=== PATIENT | male | born 1945 | race Caucasian/White ===

== ENCOUNTER → 2016-09-07 | Outpatient (CLI) | payer MEDICARE ==
[2016-05-24 14:51] VITALS: BP 134/68
[~2016-09-07] MED LIST: ASPI-482 PO; ASPI1CPM PO; CETI10TA22 PO; CRESTOR5 MG PO; OLME20TA PO; OMEP20TA PO; TAMS0.4C97 PO
--- NOTE | 2016-09-07 11:06 | KCIC ---
Exam: Abdomen ultrasound Indication:Reason For Study Reason: / Spl. Instructions: / History: Technique: Multiple realtime grayscale sonographic images were obtained over the abdomen. Static images were submitted for interpretation. Findings: The pancreas is poorly visualized due to overlying bowel gas. The IVC is patent. The aorta is normal in caliber. There is calcified atherosclerotic disease abdominal aorta. The liver is normal in size measuring 16.5 cm. There is a solid slightly hypoechoic vascular lesion in the right lobe that measures 2.6 centimeters in size. The gallbladder is nondistended. There is no evidence for cholelithiasis. There is no wall thickening, or pericholecystic fluid. Common bile duct is not well visualized. The Right kidney is normal in size measuring 11.4 x 4.9 x 4.0 cm. There is no evidence for mass, nephrolithiasis, or hydronephrosis. The Left kidney is normal in size measuring 9.7 x 4.3 x 4.9 cm. There is no evidence for mass, nephrolithiasis, or hydronephrosis. The spleen is normal in size measuring 10.9 cm. No ascites is identified. Impression: There is a 2.6 centimeter hypoechoic vascular mass in the right lobe of the liver. This is suspect for metastatic disease. Electronically signed by: Junaid Bland (Sep 07, 2016 11:04:26)
== END | disposition home or self-care (01) ==
LOC: KCIC US 08:33
PROVIDERS: ATTEND Urology
DX: I70.0 Atherosclerosis of aorta (principal); R16.0 Hepatomegaly, not elsewhere classified
CPT/HCPCS: 76700

== ENCOUNTER → 2016-09-11 | Outpatient (CLI) | payer MEDICARE ==
[2016-05-24 14:51] VITALS: BP 134/68
== END | disposition home or self-care (01) ==
LOC: LAB 11:21
PROVIDERS: ATTEND Urology
DX: N20.0 Calculus of kidney (principal)
CPT/HCPCS: 36415; 84550

== ENCOUNTER 2016-09-23 09:46 | Outpatient (CLI) | payer MEDICARE ==
[~2016-09-23] VITALS: Ht 172.7 cm; Wt 78.5 kg
[2016-09-23] VITALS (11 sets, daily range): BP systolic 88–108; BP diastolic 45–60
[2016-09-23] MEDS ORDERED: ALLO100T PO (10:04)
[2016-09-23] MEDS ORDERED: AZAC100V IJ (10:04)
[2016-09-23 10:22] LABS: BASO % 1 % (0-3); EOS % 0 % (0-3); HEMATOCRIT 29.8 % (39.0-53.0); HEMOGLOBIN 9.9 g/dL (13.0-17.5); LYMPH # 0.8 x10^3/uL (1.0-4.8); LYMPH % 18 % (24-48); MEAN CORPUSCULAR HEMOGLOBIN 30 pg (25-35); MEAN CORPUSCULAR HGB CONC 33 g/dL (31-37); MEAN CORPUSCULAR VOLUME 89 fL (79-100); MONO % 0 % (0-9); NEUT % 81 % (31-73); PLATELET COUNT 128 x10^3/uL (140-400); RED BLOOD COUNT 3.34 x10^6/uL (4.30-5.70); WHITE BLOOD COUNT 4.4 x10^3/uL (4.0-11.0)
[2016-09-23 10:32] LABS: INR 1.1 (0.8-1.1); PROTHROMBIN TIME PATIENT 13.9 SEC (11.7-14.0)
[2016-09-23] MEDS ORDERED: LIDOCAINE 1% / SOD BICARB 8.4% 20 ML VIAL. IJ ONE (12:00)
[2016-09-23] MEDS ORDERED: FENTANYL PF 100 MCG/2 ML VIAL. ONE (12:11)
[2016-09-23] MEDS ORDERED: MIDAZOLAM HCL 2 MG/2 ML VIAL. ONE (12:11)
[2016-09-23] MEDS ORDERED: GELATIN SPONGE SIZE 12-7MM SPONGE. ONE (12:16)
[2016-09-23] MEDS ORDERED: MIDAZOLAM HCL 2 MG/2 ML VIAL. IV ONE (12:45)
[2016-09-23] MEDS ORDERED: FENTANYL PF 100 MCG/2 ML VIAL. IV ONE (12:45)
--- NOTE | 2016-09-23 12:46 | PDOC ---
BRIEF OPERATIVE NOTE Pre-Op Diagnosis Liver mass Post-Op Diagnosis same Procedure Performed CT Liver biopsy Surgeon Alvin Anesthesia Type: Conscious Sedation Specimens Obtained 3 x 18g cores Complications Miniscule pneumothorax CRISTINA LILLY MD Sep 23, 2016 12:45
--- NOTE | 2016-09-23 12:46 | PDOC1 ---
History and Physical Date of Procedure Date of Admission History of Present Illness Reason for Visit Adult with liver mass Past Medical History Past Medical History see nursing pre-op assessment Current Medications Current Medications Current Medications Lidocaine/Sodium Bicarbonate (Buffered Lidocaine 1%) 20 ml 1X ONCE IJ ; Start 09/23/16 at 12:00; Stop 09/23/16 at 12:01; Status DC Fentanyl Citrate (Fentanyl 2ml Vial) 100 mcg STK-MED ONCE .ROUTE ; Start at 12:11; Stop 09/23/16 at 12:12; Status DC Midazolam HCl (Versed) 2 mg STK-MED ONCE .ROUTE ; Start 09/23/16 at 12:11; Stop 09/23/16 at 12:12; Status DC Gelatin (Gelfoam Size 12-7mm) 1 each STK-MED ONCE .ROUTE ; Start 09/23/16 at 12: 16; Stop 09/23/16 at 12:17; Status DC Midazolam HCl (Versed) 1 mg 1X ONCE IV ; Start 09/23/16 at 12:45; Stop 09/23/16 at 12:46; Status UNV Fentanyl Citrate (Fentanyl 2ml Vial) 50 mcg 1X ONCE IV ; Start 09/23/16 at 12:45 ; Stop 09/23/16 at 12:46; Status UNV Active Scripts Active Aspir 81 (Aspirin) 81 Mg Tablet.dr 1 Tab PO DAILY Flomax (Tamsulosin Hcl) 0.4 Mg Cap.er.24h 0.4 Mg PO QHS Reported Vidaza (Azacitidine) 100 Mg Vial 100 Mg IJ DAILY Allopurinol 100 Mg Tablet 100 Mg PO DAILY Zyrtec (Cetirizine Hcl) 10 Mg Tablet 1 Tab PO DAILY Gave this morning Take in Am Omeprazole 20 Mg Tablet.dr 20 Mg PO DAILY Gave Protonix this morning Take in Am Benicar (Olmesartan Medoxomil) 20 Mg Tablet 20 Mg PO DAILY Gave losartan instead this morning Take in Am Allergies Allergies: Coded Allergies: No Known Drug Allergies (Unverified , 05/22/16) Physical Exam Vital Signs Vital Signs Date Time Temp Pulse Resp B/P Pulse Ox O2 Delivery O2 Flow Rate FiO2 09/23/16 12:42 67 14 96 Nasal Cannula 2.0 09/23/16 10:56 98.2 95/55 98.2 Other see nursing pre-op assessment Assessment Assessment Liver mass Problems: Plan Plan CT Biopsy of liver CRISTINA LILLY MD Sep 23, 2016 12:46
--- NOTE | 2016-09-23 12:47 | PDOC ---
MODERATE SEDATION ASSESSMENT RISKS/ALTERNATIVES Risks/Alternatives Risks and alternatives of this type of sedation and procedure discussed with: RISK/ALTERNATIVES: Patient H & P ON CHART H & P H & P on chart and reviewed for co-morbid conditions and appropriate labs. H&P ON CHART: Yes STATUS PREG STATUS ASSESSED: Yes MEDS/ALLERGIES REVIEWED Meds/Allergies Reviewed Medications and Allergies including time and route of recently administered narcotics and sedatives. MEDS/ALLERGIES REVIEWED: Yes ASA RATING ASA RATING: II AIRWAY ASSESSMENT Airway Assessment Airway patency, oral function limitations, presence of caps, crowns, dentures, partials, and ability to extend neck assessed. AIRWAY ASSESSMENT: Yes MALLAMPATI SCORE MALLAMPATI SCORE: II PRE-SEDATION ASSESSMENT PRE-SEDATION ASSESSMENT: Yes CRISTINA LILLY MD Sep 23, 2016 12:47
--- NOTE | 2016-09-23 14:55 | RAD ---
Procedure: CT-guided liver biopsy Clinical Indication: 70-year-old with liver mass Sedation: Conscious sedation was administered for 11 minutes. The patient was monitored by a qualified independent observer throughout the time of sedation. Please refer to the medical record for exact doses of medications utilized to achieve moderate sedation. Antibiotics: None Contrast: None Sterility: The procedure was performed in its entirety using appropriate elements of sterile technique. Consent: The procedure was explained in its entirety to the patient or the patients designated human resources hr representative by a member of the treatment team, including a discussion of the risks, benefits and commonly accepted alternatives to the procedure, as well as the expected consequences of no therapy whatsoever. Discussion of the risks included, but was not limited to, those that are most frequent and those that are rare but possibly severe or life-threatening, as well as the possibility of unforeseen complications. Technique and Findings: Following informed consent, the patient was prepped and draped in the usual sterile fashion. Preliminary CT scan of the area of interest was performed. 1% lidocaine was used to achieve local anesthesia. A small dermatotomy was made. Under periodic CT surveillance, a 17-gauge needle guide was advanced towards the lesion in question and 3 x 18-gauge core biopsy specimens were obtained and preserved in formalin. Gelfoam pledgets were applied as the needle guide was removed and hemostasis was achieved with manual compression. Complications: No immediate Impression: 1. CT-guided liver mass biopsy as described PQRS Compliance Statement: One or more of the following individualized dose reduction techniques were utilized for this examination: 1. Automated exposure control 2. Adjustment of the mA and/or kV according to patient size 3. Use of iterative reconstruction technique
--- NOTE | 2016-09-23 14:57 | RAD ---
Portable chest x-ray compared to similar examination dated 05/20/2016 for status post right lung biopsy. Findings: The lungs are clear. There is no pneumothorax, pleural effusion, congestive heart failure, or focal infiltrate. Cardiomediastinum is grossly unremarkable. No significant osseous abnormalities. Impression: 1. Normal chest x-ray.
--- NOTE | 2016-09-25 15:41 | PATHOLOGY ---
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 SEE COMMENT. COMMENT: Sections of the liver mass needle biopsy reveal segments of liver tissue showing foci of replacement by a malignant epithelial neoplasm. The malignant cells are present in irregular solid nests within an inflamed reactive desmoplastic stroma. The malignant cells have a polygonal shape with well-demarcated cell borders. The malignant cells have modest amounts of eosinophilic cytoplasm, and possess enlarged, rounded to ovoid nuclei containing prominent nucleoli. There are mitotic figures present. There are foci of coagulative tumor necrosis. The tumor shows no evidence of gland formation. A limited panel of immunoperoxidase stains is obtained and yields the following results: Cytokeratin 7: tumor cells negative Cytokeratin 20: tumor cells negative Cytokeratin 5/6: tumor cells positive P40: tumor cells positive TTF-1: tumor cells largely negative CDX-2: tumor cells negative The morphologic and immunophenotypic findings are supportive of the diagnosis of moderately to poorly differentiated squamous cell carcinoma. Primary squamous cell carcinoma of the liver has been reported but is rare. The neoplasm is more likely metastatic, and may arise from a variety of sources, including lung, gastrointestinal tract, and pancreaticobiliary tract. Correlate clinically. The case is also examined by Dr. La Fallon, who concurs with the diagnosis. (JPM:csd:mgr; d/t: 09/25/2016) REPORT ELECTRONICALLY SIGNED BY: Ronald Myers M.D. DATE/TIME: 09/25/2016 15:40 * * * * * * * * GROSS PATHOLOGY: The specimen is received in formalin, labeled "Jay Lea and liver bx." Received is a 1.0 x 0.3 x 0.2 cm aggregate of blood-tinged, white-sahu, rubbery, and irregular soft tissue fragments. The specimen is submitted entirely in cassette A1. (TTL; 09/23/2016) INITIAL CPT CODE(S): A; 13358, 58443, 98510, 09384, 85364, 44696, 21184 Professional services performed by [facility] at [facility] [address] [place] [id number] Technical services performed by [facility] at [address] [place] [address], [address], [place] [address]. SPECIMEN(S) RECEIVED: A.Liver mass biopsy CLINICAL HISTORY: Liver mass, history of leukemia PATIENT: JAY LEA /AGE: 411/24/1945 (Age: 70) PATIENT #: [id number] ALT CASE #: SPECIMEN COLLECTION DATE: 09/23/2016 SPECIMEN RECEIVED DATE: 09/23/2016 [facility] - [address] [place] [address] - PHONE: [phone] * * * END OF REPORT * * *
== END 2016-09-23 15:24 | disposition home or self-care (01) ==
LOC: INTRAD 09:46
PROVIDERS: ATTEND Internal Medicine Hematology & Oncology
DX: R16.0 Hepatomegaly, not elsewhere classified (principal); G45.9 Transient cerebral ischemic attack, unspecified; I63.9 Cerebral infarction, unspecified; E78.00 Pure hypercholesterolemia, unspecified; I10 Essential (primary) hypertension; K21.9 Gastro-esophageal reflux disease without esophagitis; M19.90 Unspecified osteoarthritis, unspecified site; F17.200 Nicotine dependence, unspecified, uncomplicated
CPT/HCPCS: 36415; 47000; 71010; 77012; 85027; 85610; J2250; J3010

== ENCOUNTER 2016-10-13 06:34 | Day surgery (SDC) | payer MEDICARE ==
[~2016-10-13] VITALS: Ht 172.7 cm; Wt 78.5 kg
[~2016-10-13 06:34] MED LIST changes: +ALLO100T PO; +AZAC100V IJ
[2016-10-13] MEDS ORDERED: PROCHLORPERAZINE 10 MG/2 ML VIAL. IV PRN (07:00)
[2016-10-13] MEDS ORDERED: IV RINGERS,LACTATED 1000ML 1,000 ML IV SCH (07:00)
[2016-10-13] MEDS ORDERED: FENTANYL PF 100 MCG/2 ML VIAL. IV PRN ×2 (07:00)
[2016-10-13] MEDS ORDERED: HYDROMORPHONE 2 MG/ML VIAL. IV PRN (07:00)
[2016-10-13] MEDS ORDERED: LIDOCAINE 1% 1 ML SYRINGE. ID PRN (07:00)
[2016-10-13] MEDS ORDERED: MORPHINE SULFATE 2 MG/ML DISP.SYRIN. IV PRN (07:00)
[2016-10-13] MEDS ORDERED: ONDANSETRON PF 4 MG/2 ML VIAL. IV PRN (07:00)
[2016-10-13 07:38] LABS: CALCIUM 8.8 mg/dL (8.5-10.1); POTASSIUM 4.6 mmol/L (3.5-5.1)
[2016-10-13 07:39] LABS: BASO % 1 % (0-3); EOS % 0 % (0-3); HEMATOCRIT 29.7 % (39.0-53.0); HEMOGLOBIN 9.7 g/dL (13.0-17.5); LYMPH # 0.5 x10^3/uL (1.0-4.8); LYMPH % 13 % (24-48); MEAN CORPUSCULAR HEMOGLOBIN 30 pg (25-35); MEAN CORPUSCULAR HGB CONC 33 g/dL (31-37); MEAN CORPUSCULAR VOLUME 91 fL (79-100); MONO % 0 % (0-9); NEUT % 86 % (31-73); PLATELET COUNT 116 x10^3/uL (140-400); RED BLOOD COUNT 3.28 x10^6/uL (4.30-5.70); RED CELL DISTRIBUTION WIDTH 16.9 % (11.5-14.5); WHITE BLOOD COUNT 3.6 x10^3/uL (4.0-11.0)
[2016-10-13] MEDS ORDERED: PROPOFOL 20 ML IV ONE (07:48)
[2016-10-13] MEDS ORDERED: ONDANSETRON PF 4 MG/2 ML VIAL. ONE (07:49)
[2016-10-13] MEDS ORDERED: LIDOCAINE 2% 100 MG/5 ML DISP.SYRIN. ONE (07:49)
[2016-10-13] MEDS ORDERED: DEXAMETHASONE SOD PHOS 20 MG/5 ML VIAL. ONE (07:49)
[2016-10-13] MEDS ORDERED: FENTANYL PF 100 MCG/2 ML VIAL. ONE (07:50)
[2016-10-13 08:13] LABS: BILIRUBIN,URINE NEGATIVE (NEG); GLUCOSE,URINE NEGATIVE (NEG); NITRITE,URINE NEGATIVE (NEG); PROTEIN,URINE 30 mg/dL (NEG-TRACE)
[2016-10-13 08:20] LABS: BACTERIA,URINE 0 /HPF (0-FEW); RBC,URINE 0 /HPF (0-2); SQUAMOUS EPITHELIAL CELL,UR FEW /LPF; WBC,URINE 0 /HPF (0-4)
[2016-10-13] MEDS ORDERED: EPHEDRINE PF IN SALINE 50 MG/5 ML DISP.SYRIN. IV ONE (08:21)
[2016-10-13] MEDS ORDERED: PHENYLEPHRINE in 0.9% NACL PF 1 MG/10 ML DISP.SYRIN. IV ONE (08:38)
[2016-10-13] MEDS ORDERED: IOHEXOL 300 MG/ML 50 ML VIAL. ONE (08:38)
[2016-10-13] MEDS ORDERED: SEVOFLURANE 31 TO 60 MINUTES. IH ONE (08:51)
--- NOTE | 2016-10-13 09:08 | DISCH ---
DISCHARGE INSTRUCTIONS Condition on Discharge Condition on Discharge: Stable Activity After Discharge Activity Instructions for Disc: Resume previous activity Driving Instructions after Dis: Do not drive today Diet after Discharge Diet after Discharge: Regular Contacting the DRSierra after DC Call your doctor for: Concerns you may have Follow-Up Follow up with: 6 weeks GINA Renee DO Oct 13, 2016 09:08
--- NOTE | 2016-10-13 09:13 | PDOC ---
BRIEF OPERATIVE NOTE Date: Oct 13, 2016 Pre-Op Diagnosis right ureteral calculi (uric acid) Post-Op Diagnosis same Procedure Performed Cystoscopy removal right ureteral stent, right retrograde pyelogram, removal of bladder stones Surgeon Belen Anesthesia Type: General Specimens Obtained stones sent for stone analysis Findings right ureter free of stones multiple bladder stones Complications none Additional Remarks continue Allopurinol needs urine alkalinazation GINA ASHFORD DO Oct 13, 2016 09:13
[2016-10-13] MEDS ORDERED: CIPR500T PO (09:30)
--- NOTE | 2016-10-13 09:37 | OP ---
DATE OF SURGERY: 10/13/2016 PREOPERATIVE DIAGNOSIS: Uric acid, kidney stones, right ureteral calculus. POSTOPERATIVE DIAGNOSIS: Uric acid, kidney stones, right ureteral calculus. PROCEDURE: Cystoscopy, removal of right ureteral stent, right retrograde pyelogram, removal of foreign body from bladder. SURGEON: Gina Ashford DO. ANESTHESIA: General. INDICATIONS AND JUDGMENT: This is a 70-year-old male with a history of multiple uric acid kidney stones. He underwent cystoscopy and stent placement months ago for a distal uric acid stones. We were unable to continue treatment due to his treatment for leukemia. It was felt at this point that his blood count had improved and we could safely remove the right ureteral stent. A recent KUB revealed the stent was in good position and no evidence of hydronephrosis or ureteral calculi. The patient was currently on allopurinol for his a history of multiple uric acid kidney stones. DESCRIPTION OF PROCEDURE: The patient was preloaded with IV antibiotics. He was taken to the operating room and placed on the operating room table in a supine position, given a general anesthetic and then placed in a dorsolithotomy position using Brent stirrups since we do not have a cystoscopy table. A C-arm was moved into position. Stent was identified in satisfactory position with fluoroscopy. Rigid cystoscopy was performed. The urethra was normal course and caliber. The patient has a small prostate 15-20 grams, not completely obstructing. He had some uric acid kidney stones adherent to the stent in the bladder. Some of these were removed and sent for stone analysis and some other stones were in the bladder were removed and sent for stone analysis ____ appeared to be uric acid. The distal portion of the right ureteral stent was grasped with grasping forceps and removed without difficulty. I then did a right retrograde pyelogram. I did not see any filling defects in the ureter. There may be a uric acid stone in the renal pelvis might have been air bubble. The contrast drained without difficulty. I then ran 0.035 Glidewire up the right ureter. I did not meet any resistance and the wire was then removed. It was felt that the right ureter was open and not obstructed by the calculi. I then performed a cystoscopy and removed a few more stone fragments from the bladder and these were sent for stone analysis as well. The instruments were removed. The patient tolerated the procedure well and was sent to recovery room in satisfactory condition. Plans will be to send the patient home on 3 days with Cipro antibiotics, he will continue his allopurinol. I will check with the oncologist, Dr. Langley. I would like to place him on medication to ____ his urine to further prevent more kidney stones. The patient was sent to recovery room in satisfactory condition. GINA ASHFORD DO DR: AMA/franci JOB#: [id number] / [id number] DELLA John MD
[2016-10-13 09:47] VITALS: BP 105/54
[2016-10-13 10:19] LABS: PLT ESTIMATE ADEQUATE (ADEQUATE)
[2016-10-16 11:27] LABS: COLOR Orange (.); URIC ACID 100 % (.)
== END 2016-10-13 10:12 | disposition home or self-care (01) ==
LOC: SURG 06:34
PROVIDERS: ATTEND Urology
DX: N20.2 Calculus of kidney with calculus of ureter (principal); E78.00 Pure hypercholesterolemia, unspecified; I10 Essential (primary) hypertension; K21.9 Gastro-esophageal reflux disease without esophagitis; M19.90 Unspecified osteoarthritis, unspecified site; Z87.39 Personal history of other diseases of the musculoskeletal system and connective tissue; Z87.891 Personal history of nicotine dependence; Z86.73 Personal history of transient ischemic attack (TIA), and cerebral infarction without residual deficits
CPT/HCPCS: 36415; 52310; 74420; 80048; 81001; 82365; 85007; 85027; C1769; J1100; J1956; J2370; J2405; J2704; J3010; Q9967

== ENCOUNTER → 2016-12-31 | Outpatient (CLI) | payer MEDICARE ==
[~2016-12-31] MED LIST changes: +CIPR500T PO
--- NOTE | 2016-12-31 13:26 | RAD ---
FDG tumor localization scan, PET/CT, 12/31/2016: History: Lung cancer, leukemia Following IV injection of 14.0 mCi of 18 F-FDG, imaging was performed from the skull base to the proximal thighs. The noncontrast CT component was performed for attenuation correction and anatomic localization purposes rather than for primary diagnosis. The patient's blood glucose level at the time of injection was 112 MG/DL. Comparison is made to a study from 09/17/2016. The previously seen hypermetabolic focus in the right azygous region has resolved. The CT component demonstrates persistent pulmonary nodules. The hypermetabolic nodule seen in the left upper lobe on the previous studies is of similar size, although it is no longer hypermetabolic. There appear to be several new small nodular opacities in both lungs. These nodules do not demonstrate increased FDG uptake, however, that may be due to their small sizes. A small mildly hypermetabolic focus is seen in the subcarinal region on the right. It demonstrate a maximum SUV of 3.9. The previously seen hypermetabolic focus in the liver is no longer visible. FDG uptake in the liver is unremarkable. Normal GI tract and urinary tract activity is evident in the abdomen and pelvis. No new hypermetabolic abdominal or pelvic process is seen. There is increased FDG uptake in the bone marrow, most prominent throughout the spine and in the proximal long bones. The degree of increased FDG uptake appears to have increased slightly since the previous study. A moderate-sized area of encephalomalacia is again noted in the left cerebral hemisphere. Coronary artery calcifications are present. The right ureteral stent has been removed. Sigmoid diverticula are again noted. There is moderate nonspecific prostatic enlargement. IMPRESSION: 1. The hypermetabolic foci in the azygos region and the right lobe of the liver have resolved, suggesting a favorable response to therapy. 2. Previously seen hypermetabolic pulmonary nodules no longer demonstrate increased FDG uptake, although those nodules persist. There are several new pulmonary nodules bilaterally. 3. New, tiny, mildly hypermetabolic focus in the right subcarinal region. 4. Generalized increased FDG uptake in the bone marrow has worsened slightly, again compatible with a rebound response to chemotherapy versus tumor infiltration this patient with a history of leukemia.
== END | disposition home or self-care (01) ==
LOC: PETSC 09:43
PROVIDERS: ATTEND Internal Medicine Hematology & Oncology
DX: C93.10 Chronic myelomonocytic leukemia not having achieved remission (principal); C34.90 Malignant neoplasm of unspecified part of unspecified bronchus or lung; I25.10 Atherosclerotic heart disease of native coronary artery without angina pectoris; N40.0 Benign prostatic hyperplasia without lower urinary tract symptoms; K57.30 Diverticulosis of large intestine without perforation or abscess without bleeding; G93.89 Other specified disorders of brain
CPT/HCPCS: 78815; A9552

== ENCOUNTER → 2017-03-12 | Outpatient (CLI) | payer MEDICARE ==
[~2017-03-12] MED LIST changes: -OLME20TA PO; +OLME20TA19 PO; -OMEP20TA PO; +OMEP20TA8 PO
--- NOTE | 2017-03-12 14:20 | KCIC ---
PA and lateral chest radiograph 03/12/2017 CLINICAL HISTORY: Lung cancer. Two PA and a lateral digital radiographs of the chest were obtained. Comparison study is dated 09/23/2016. The cardiac silhouette is normal in size. The thoracic aorta is tortuous. Atherosclerotic calcification of the thoracic aorta is seen. No acute pulmonary infiltrate is seen. No pleural effusion or pneumothorax is noted. The osseous structures are unchanged. IMPRESSION: No acute pulmonary infiltrate is seen. Electronically signed by: Twan Fulton MD (03/12/2017 2:17 PM) [facility]-KCIC1
== END | disposition home or self-care (01) ==
LOC: KCIC 12:20
PROVIDERS: ATTEND Nurse Practitioner Adult Health
DX: C34.90 Malignant neoplasm of unspecified part of unspecified bronchus or lung (principal)
CPT/HCPCS: 71020

== ENCOUNTER → 2017-04-15 | Outpatient (CLI) | payer MEDICARE ==
--- NOTE | 2017-04-15 12:38 | RAD ---
Exam performed: Nuclear medicine PET scan. History: [Lung cancer, hemotherapy one week ago, history of stroke. Years ago]. Date of service: 04/15/17. Comparison: Nuclear medicine PET scan from 12/31/16. Technique: Patient was injected 12.74 .5 mCi of F-18 FDG intravenously and delayed whole-body images are obtained from the skull base to the mid thighs. Corresponding noncontrast enhanced images are obtained for the purposes of attenuation correction and anatomical correlation. Patient's fasting blood glucose level at the time of injection measures 123.0 mg/dL. Findings: Previously seen hypermetabolic nodule in the subcarinal region is no longer visualized.. There is development of several new pulmonary nodules for example nodule anteriorly in the left upper lobe measuring 1.2 cm demonstrates low-grade metabolic activity of up to 1.8. A pleural-based soft tissue density 1.3 cm nodule in the posterior basal left lower lobe demonstrates no hypermetabolic activity with SUV values of up to 2.7. There is also development of additional 1.6 cm nodule in the posterior basal right lower lobe without hypermetabolic activity. SUV value in this nodule measures up to 2.4. Additional streaky opacities are also seen in the lower lobes bilaterally. Previously seen subcentimeter nodularities in both upper lobes remain stable. Diffuse increased FDG uptake in the bone marrow appears less prominent since previous study. No abnormal hypermetabolic activity seen in the neck chest, abdomen or pelvis. The corresponding CT images demonstrate a chronic left parietal infarct. No abnormalities or masses seen in the. There are no neck, mediastinal or hilar adenopathy. Mild atheromatous calcification of the aorta and coronary arteries. Unopacified abdominal viscera appear grossly normal. Prostatomegaly. Atheromatous aortic calcification. No abdominal masses seen degenerative changes about the thoracolumbar spine. Impression: 1.Previously seen diffuse areas of generalized FDG uptake in the bone marrow appears improved. 2. Development of few new pulmonary nodules without abnormal hypermetabolic activity with ongoing tiny subcentimeter pulmonary nodules. Development of streaky linear bibasal opacities probably atelectasis. PQRS Compliance Statement: One or more of the following individualized dose reduction techniques were utilized for this examination: 1. Automated exposure control 2. Adjustment of the mA and/or kV according to patient size 3. Use of iterative reconstruction technique
== END | disposition home or self-care (01) ==
LOC: PETSC 07:41
PROVIDERS: ATTEND Internal Medicine Hematology & Oncology
DX: C34.92 Malignant neoplasm of unspecified part of left bronchus or lung (principal); R53.83 Other fatigue; Z86.73 Personal history of transient ischemic attack (TIA), and cerebral infarction without residual deficits
CPT/HCPCS: 78815; A9552

== ENCOUNTER → 2017-07-01 | Outpatient (CLI) | payer MEDICARE ==
[2017-06-28 15:03] VITALS: BP 130/71
[~2017-07-01] MED LIST changes: +ACYC200C PO; +FLUC200T4 PO; +LEVO500T8 PO
--- NOTE | 2017-07-01 17:26 | RAD ---
EXAM: PET/CT SKULL BASE TO MID THIGH 07/01/2017. HISTORY: Restaging hepatocellular carcinoma. Recent chemotherapy treatment. COMPARISON: PET CT 04/15/2017, 12/31/2016. TECHNIQUE: CT was performed from the skull base through the mid thighs for the purposes of attenuation correction. 11.6 mCi F-18 fluorodeoxyglucose (FDG) was administered intravenously. After an uptake period, positron emission tomography was performed from the skull base through the mid thighs. The PET and CT data were fused and interpreted in combination a dedicated workstation. Blood glucose level was 122 mg/dL at the time of FDG administration. Findings: Head and neck: There is a large left frontoparietotemporal encephalomalacia with associated therapeutic defect. No discrete hypermetabolic mass or lymphadenopathy in this region. Chest: There is a punctate focus of increased FDG uptake with maximum SUV of 3.2 in the lower right paratracheal region with no discrete mass on the CT. Interval improvement in the PET and bilateral lower lobe patchy groundglass and nodular opacities with development of nodular opacities in the medial left upper lobe with mild associated FDG uptake. There is a stable 0.5 cm noncalcified nodule in the left upper lobe series 3/oh image 154 with no associated FDG uptake. Abdomen and pelvis: There is physiologic uptake in both kidneys with excretion into the renal collecting system. No suspicious hypermetabolic mass or lymphadenopathy in this region. Musculoskeletal: There is diffuse uptake throughout the visualized axial and appendicular skeleton. Uncorrected PET images: No additional significant finding on the uncorrected PET images. Low-dose CT: Coronary artery calcifications. Stable moderate splenomegaly. There are bilateral nonobstructive renal calculi. Infrarenal abdominal aortic ectasia with heavy aortoiliac calcified atheromatous disease. There is moderate enlargement of the prostate measuring 5.6 cm TV. Moderate colonic diverticulosis. Impression: 1. Improvement and development of mildly FDG avid patchy groundglass and nodular opacities throughout both lungs, which may represent pneumonitis or multifocal infection with atypical etiologies not excluded. 2. Involvement of diffuse osseous axial and appendicular FDG uptake as well as increased FDG activity in a mildly enlarged spleen which may be due to G-CSF therapy or leukemic involvement. 3. Development of lower right paratracheal punctate FDG uptake with no associated soft tissue nodule, may be artifactual, though previously it was a site of hypermetabolic lymphadenopathy. Attention on follow-up imaging is recommended. 4. Old left cerebral infarct.
== END | disposition home or self-care (01) ==
LOC: PETSC 11:05
PROVIDERS: ATTEND Internal Medicine Hematology & Oncology
DX: C93.10 Chronic myelomonocytic leukemia not having achieved remission (principal); C22.0 Liver cell carcinoma; R16.1 Splenomegaly, not elsewhere classified; Z86.73 Personal history of transient ischemic attack (TIA), and cerebral infarction without residual deficits
CPT/HCPCS: 78815; A9552

== ENCOUNTER → 2017-12-24 | Outpatient (CLI) | payer MEDICARE ==
[~2017-12-24] MED LIST changes: +ACETAMINOPHEN 325 MG TABLET. PO; -ACYC200C PO; -ALLO100T PO; -ASPI-482 PO; -ASPI1CPM PO; -AZAC100V IJ; -CETI10TA22 PO; -CIPR500T PO; -CRESTOR5 MG PO; -FLUC200T4 PO; -LEVO500T8 PO; -OLME20TA19 PO; -OMEP20TA8 PO; -TAMS0.4C97 PO; +diphenhydrAMINE HCL 25 MG CAPSULE PO
[2017-12-24 12:11] LABS: HEMATOCRIT 24.3 % (39.0-53.0); HEMOGLOBIN 8.5 g/dL (13.0-17.5); MEAN CORPUSCULAR HGB CONC 35 g/dL (31-37)
== END | disposition home or self-care (01) ==
LOC: OPS 11:24
DX: C92.00 Acute myeloblastic leukemia, not having achieved remission (principal)
CPT/HCPCS: 36415; 85014; 85018

== ENCOUNTER 2018-02-13 12:30 | Inpatient (IN) | payer MEDICARE ==
[2018-02-13] MEDS: IV NORMAL SALINE 1000ML BAG 1,000 ML IV (12:55)
[2018-02-13 13:06] LABS: ANION GAP 8 (6-14); BLOOD UREA NITROGEN 38 mg/dL (8-26); BUN/CREATININE RATIO 18 (6-20); CALCIUM 9.1 mg/dL (8.5-10.1); CARBON DIOXIDE 28 mmol/L (21-32); CHLORIDE 103 mmol/L (98-107); CREATININE 2.1 mg/dL (0.7-1.3); GLUCOSE 98 mg/dL (70-99); POTASSIUM 4.4 mmol/L (3.5-5.1); SODIUM 139 mmol/L (136-145)
[2018-02-13 13:12] LABS: ALBUMIN 2.8 g/dL (3.4-5.0); ALBUMIN/GLOBULIN RATIO 0.7 (1.0-1.7); ALK PHOS 113 U/L (46-116); ALT (SGPT) 16 U/L (16-63); AST (SGOT) 14 U/L (15-37); MAGNESIUM 1.7 mg/dL (1.8-2.4); TOTAL BILIRUBIN 0.5 mg/dL (0.2-1.0); TOTAL PROTEIN 6.6 g/dL (6.4-8.2)
[2018-02-13 13:15] LABS: BASO % 0 % (0-3); EOS % 0 % (0-3); HEMOGLOBIN 7.3 g/dL (13.0-17.5); LYMPH # 0.3 x10^3/uL (1.0-4.8); LYMPH % 51 % (24-48); MEAN CORPUSCULAR HEMOGLOBIN 30 pg (25-35); MEAN CORPUSCULAR HGB CONC 36 g/dL (31-37); MEAN CORPUSCULAR VOLUME 84 fL (79-100); MONO % 0 % (0-9); NEUT # 0.3 x10^3uL (1.8-7.7); NEUT % 48 % (31-73); RED BLOOD COUNT 2.41 x10^6/uL (4.30-5.70); RED CELL DISTRIBUTION WIDTH 15.5 % (11.5-14.5)
[2018-02-13 13:15] LABS: TROPONINI 0.065 ng/mL (0.000-0.055)
[2018-02-13 13:16] LABS: THYROID STIM HORMONE (TSH) 1.476 uIU/mL (0.358-3.74)
[2018-02-13 13:18] LABS: HEMATOCRIT 20.3 % (39.0-53.0); WHITE BLOOD COUNT 0.7 x10^3/uL (4.0-11.0)
[2018-02-13 13:19] LABS: NT-PRO BNP 483 pg/mL (0-124)
[2018-02-13 13:19] LABS: ADD MAN DIFF? YES; CKMB MASS 0.6 ng/mL (0.0-3.6); CREATINE KINASE 48 U/L (39-308); PLATELET COUNT 16 x10^3/uL (140-400)
[2018-02-13 14:28] LABS: % BANDS 6 % (0-9); % BASOS 1 % (0-3); % EOS 1 % (0-5); % LYMPHS 57 % (24-48); % MONOS 2 % (0-10); % SEGS 33 % (35-66)
[2018-02-13 14:41] LABS: PLT ESTIMATE DECREASED (ADEQUATE)
[2018-02-13 15:22] LABS: BILIRUBIN,URINE NEGATIVE (NEG); CLARITY,URINE CLEAR; COLOR,URINE YELLOW; GLUCOSE,URINE NEGATIVE (NEG); NITRITE,URINE NEGATIVE (NEG); PROTEIN,URINE 30 mg/dL (NEG-TRACE); UROBILINOGEN,URINE 0.2 mg/dL (0.2 mg/dL)
[2018-02-13 15:25] LABS: BACTERIA,URINE FEW /HPF (0-FEW); SQUAMOUS EPITHELIAL CELL,UR FEW /LPF; WBC,URINE OCC /HPF (0-4)
[2018-02-13] MEDS ORDERED: ONDANSETRON PF 4 MG/2 ML VIAL. IV (16:45)
[2018-02-13 17:53] LABS: TROPONINI 0.058 ng/mL (0.000-0.055)
[2018-02-13] MEDS: ATORVASTATIN CALCIUM 20 MG TABLET PO (20:45)
[2018-02-13] MEDS: IV DEXTROSE 5% - 0.9 % NACL 1,000 ML IV (20:46)
[2018-02-13] MEDS: ACYCLOVIR 200 MG CAPSULE. PO (20:47)
[2018-02-13] MEDS: MORPHINE SULFATE 4 MG/ML DISP.SYRIN. IV (20:55)
[2018-02-13 21:44] LABS: TROPONINI 0.056 ng/mL (0.000-0.055)
[2018-02-14 04:54] LABS: ADD MAN DIFF? NO
[2018-02-14 05:23] LABS: BASO % 1 % (0-3); EOS % 1 % (0-3); LYMPH # 0.3 x10^3/uL (1.0-4.8); LYMPH % 64 % (24-48); MEAN CORPUSCULAR HEMOGLOBIN 30 pg (25-35); MEAN CORPUSCULAR HGB CONC 36 g/dL (31-37); MEAN CORPUSCULAR VOLUME 84 fL (79-100); MONO % 1 % (0-9); NEUT # 0.2 x10^3uL (1.8-7.7); NEUT % 34 % (31-73); RED BLOOD COUNT 2.11 x10^6/uL (4.30-5.70); RED CELL DISTRIBUTION WIDTH 15.4 % (11.5-14.5)
[2018-02-14 05:46] LABS: HEMATOCRIT 17.7 % (39.0-53.0); HEMOGLOBIN 6.3 g/dL (13.0-17.5); PLATELET COUNT 12 x10^3/uL (140-400); WHITE BLOOD COUNT 0.5 x10^3/uL (4.0-11.0)
[2018-02-14 05:56] LABS: ALBUMIN 2.3 g/dL (3.4-5.0); ALBUMIN/GLOBULIN RATIO 0.6 (1.0-1.7); ALK PHOS 94 U/L (46-116); ALT (SGPT) 14 U/L (16-63); ANION GAP 8 (6-14); AST (SGOT) 12 U/L (15-37); BLOOD UREA NITROGEN 32 mg/dL (8-26); BUN/CREATININE RATIO 17 (6-20); CALCIUM 9.1 mg/dL (8.5-10.1); CARBON DIOXIDE 25 mmol/L (21-32); CHLORIDE 105 mmol/L (98-107); CREATININE 1.9 mg/dL (0.7-1.3); GFR 34.8; GLUCOSE 111 mg/dL (70-99); POTASSIUM 3.6 mmol/L (3.5-5.1); SODIUM 138 mmol/L (136-145); TOTAL BILIRUBIN 0.3 mg/dL (0.2-1.0); TOTAL PROTEIN 6.1 g/dL (6.4-8.2)
[2018-02-14 06:09] LABS: TROPONINI 0.054 ng/mL (0.000-0.055)
[2018-02-14] MEDS: IV DEXTROSE 5% - 0.9 % NACL 1,000 ML IV ×2 (06:59→20:44)
[2018-02-14] MEDS: ALLOPURINOL 100 MG TABLET. PO (08:27)
[2018-02-14] MEDS: FLUCONAZOLE 100 MG TABLET. PO (08:27)
[2018-02-14] MEDS: ACYCLOVIR 200 MG CAPSULE. PO ×2 (08:27→20:39)
[2018-02-14] MEDS: PANTOPRAZOLE 40 MG TABLET.DR. PO (08:27)
[2018-02-14] MEDS: LOSARTAN POTASSIUM 50 MG TABLET. PO (08:28)
[2018-02-14 16:09] LABS: IMMEDIATE SPIN CROSSMATCH 1 3
[2018-02-14] MEDS: ATORVASTATIN CALCIUM 20 MG TABLET PO (20:39)
[2018-02-14] MEDS: TBO-FILGRASTIM 480 MCG/0.8 ML SYRINGE. SQ (20:41)
[2018-02-15] MEDS: IV DEXTROSE 5% - 0.9 % NACL 1,000 ML IV ×3 (05:32→23:19)
[2018-02-15] MEDS: PANTOPRAZOLE 40 MG TABLET.DR. PO (08:07)
[2018-02-15] MEDS: ACYCLOVIR 200 MG CAPSULE. PO ×2 (08:07→20:58)
[2018-02-15] MEDS: FLUCONAZOLE 100 MG TABLET. PO (08:07)
[2018-02-15] MEDS: ALLOPURINOL 100 MG TABLET. PO (08:07)
[2018-02-15] MEDS: LOSARTAN POTASSIUM 50 MG TABLET. PO (08:08)
[2018-02-15 10:15] LABS: ADD MAN DIFF? NO
[2018-02-15 10:20] LABS: BASO % 1 % (0-3); EOS % 0 % (0-3); HEMATOCRIT 24.9 % (39.0-53.0); HEMOGLOBIN 8.9 g/dL (13.0-17.5); LYMPH # 0.3 x10^3/uL (1.0-4.8); LYMPH % 34 % (24-48); MEAN CORPUSCULAR HEMOGLOBIN 30 pg (25-35); MEAN CORPUSCULAR HGB CONC 36 g/dL (31-37); MEAN CORPUSCULAR VOLUME 84 fL (79-100); MONO % 0 % (0-9); NEUT # 0.7 x10^3uL (1.8-7.7); NEUT % 64 % (31-73); RED BLOOD COUNT 2.95 x10^6/uL (4.30-5.70); RED CELL DISTRIBUTION WIDTH 15.3 % (11.5-14.5)
[2018-02-15 10:31] LABS: PLATELET COUNT 12 x10^3/uL (140-400)
[2018-02-15] MEDS: ATORVASTATIN CALCIUM 20 MG TABLET PO (20:59)
[2018-02-15] MEDS: TBO-FILGRASTIM 480 MCG/0.8 ML SYRINGE. SQ (20:59)
[2018-02-16 05:43] LABS: ADD MAN DIFF? NO
[2018-02-16 06:02] LABS: BASO % 1 % (0-3); EOS % 0 % (0-3); HEMATOCRIT 21.1 % (39.0-53.0); HEMOGLOBIN 7.5 g/dL (13.0-17.5); LYMPH # 0.3 x10^3/uL (1.0-4.8); LYMPH % 32 % (24-48); MEAN CORPUSCULAR HEMOGLOBIN 30 pg (25-35); MEAN CORPUSCULAR HGB CONC 36 g/dL (31-37); MEAN CORPUSCULAR VOLUME 84 fL (79-100); MONO % 0 % (0-9); NEUT # 0.6 x10^3uL (1.8-7.7); NEUT % 66 % (31-73); RED CELL DISTRIBUTION WIDTH 15.1 % (11.5-14.5)
[2018-02-16 06:51] LABS: PLATELET COUNT 12 x10^3/uL (140-400); WHITE BLOOD COUNT 0.9 x10^3/uL (4.0-11.0)
[2018-02-16] MEDS: PANTOPRAZOLE 40 MG TABLET.DR. PO (07:28)
[2018-02-16] MEDS: ALLOPURINOL 100 MG TABLET. PO (07:28)
[2018-02-16] MEDS: FLUCONAZOLE 100 MG TABLET. PO (07:28)
[2018-02-16] MEDS: ACYCLOVIR 200 MG CAPSULE. PO ×2 (07:28→20:25)
[2018-02-16] MEDS: LOSARTAN POTASSIUM 50 MG TABLET. PO (07:29)
[2018-02-16] MEDS: IV DEXTROSE 5% - 0.9 % NACL 1,000 ML IV ×2 (09:35→20:26)
[2018-02-16] MEDS ORDERED: BISACODYL 10 MG SUPP.RECT. PR (12:00)
[2018-02-16] MEDS ORDERED: DOCUSATE SODIUM 283 MG/5 ML ENEMA. PR (12:00)
[2018-02-16] MEDS ORDERED: MAGNESIUM HYDROXIDE 2,400 MG/30 ML ORAL.SUSP. PO (12:00)
[2018-02-16] MEDS: MAGNESIUM CITRATE 296 ML SOLUTION. PO (12:28)
[2018-02-16] MEDS: BISACODYL 5 MG TABLET.DR. PO (12:28)
[2018-02-16 14:56] LABS: IMMEDIATE SPIN CROSSMATCH 1
[2018-02-16] MEDS: ATORVASTATIN CALCIUM 20 MG TABLET PO (20:25)
[2018-02-16] MEDS: SENNOSIDES/DOCUSATE 8.6/50MG TABLET. PO (20:25)
[2018-02-16] MEDS: TBO-FILGRASTIM 480 MCG/0.8 ML SYRINGE. SQ (20:29)
[2018-02-17] MEDS: IV DEXTROSE 5% - 0.9 % NACL 1,000 ML IV ×3 (04:45→21:05)
[2018-02-17] MEDS: PANTOPRAZOLE 40 MG TABLET.DR. PO (08:42)
[2018-02-17] MEDS: LOSARTAN POTASSIUM 50 MG TABLET. PO (08:42)
[2018-02-17] MEDS: ACYCLOVIR 200 MG CAPSULE. PO ×2 (08:42→21:06)
[2018-02-17] MEDS: FLUCONAZOLE 100 MG TABLET. PO (08:42)
[2018-02-17] MEDS: ALLOPURINOL 100 MG TABLET. PO (08:42)
[2018-02-17] MEDS: SENNOSIDES/DOCUSATE 8.6/50MG TABLET. PO ×2 (08:43→21:06)
[2018-02-17] MEDS: BISACODYL 5 MG TABLET.DR. PO (08:43)
[2018-02-17 09:27] LABS: ADD MAN DIFF? NO
[2018-02-17 09:48] LABS: BASO % 0 % (0-3); EOS % 0 % (0-3); HEMATOCRIT 24.4 % (39.0-53.0); HEMOGLOBIN 8.7 g/dL (13.0-17.5); LYMPH # 0.3 x10^3/uL (1.0-4.8); LYMPH % 22 % (24-48); MEAN CORPUSCULAR HEMOGLOBIN 30 pg (25-35); MEAN CORPUSCULAR HGB CONC 36 g/dL (31-37); MEAN CORPUSCULAR VOLUME 84 fL (79-100); MONO % 0 % (0-9); NEUT % 78 % (31-73); RED CELL DISTRIBUTION WIDTH 15.5 % (11.5-14.5)
[2018-02-17 10:04] LABS: PLATELET COUNT 13 x10^3/uL (140-400); WHITE BLOOD COUNT 1.3 x10^3/uL (4.0-11.0)
[2018-02-17 11:39] LABS: ALBUMIN 2.3 g/dL (3.4-5.0); ALBUMIN/GLOBULIN RATIO 0.7 (1.0-1.7); ALK PHOS 92 U/L (46-116); ALT (SGPT) 13 U/L (16-63); ANION GAP 5 (6-14); AST (SGOT) 17 U/L (15-37); BLOOD UREA NITROGEN 21 mg/dL (8-26); BUN/CREATININE RATIO 12 (6-20); CALCIUM 8.4 mg/dL (8.5-10.1); CARBON DIOXIDE 27 mmol/L (21-32); CHLORIDE 102 mmol/L (98-107); CREATININE 1.8 mg/dL (0.7-1.3); GFR 37.1; GLUCOSE 151 mg/dL (70-99); POTASSIUM 3.6 mmol/L (3.5-5.1); SODIUM 134 mmol/L (136-145); TOTAL BILIRUBIN 0.4 mg/dL (0.2-1.0); TOTAL PROTEIN 5.5 g/dL (6.4-8.2)
[2018-02-17] MEDS: ATORVASTATIN CALCIUM 20 MG TABLET PO (21:07)
[2018-02-18] MEDS: TBO-FILGRASTIM 480 MCG/0.8 ML SYRINGE. SQ ×2 (00:39→21:33)
[2018-02-18] MEDS: MORPHINE SULFATE 4 MG/ML DISP.SYRIN. IV (00:43)
[2018-02-18 05:21] LABS: ADD MAN DIFF? NO
[2018-02-18 05:29] LABS: BASO % 0 % (0-3); EOS % 0 % (0-3); HEMATOCRIT 23.4 % (39.0-53.0); HEMOGLOBIN 8.4 g/dL (13.0-17.5); LYMPH # 0.4 x10^3/uL (1.0-4.8); LYMPH % 34 % (24-48); MEAN CORPUSCULAR HEMOGLOBIN 30 pg (25-35); MEAN CORPUSCULAR HGB CONC 36 g/dL (31-37); MEAN CORPUSCULAR VOLUME 84 fL (79-100); MONO % 0 % (0-9); NEUT # 0.8 x10^3uL (1.8-7.7); NEUT % 66 % (31-73); RED BLOOD COUNT 2.78 x10^6/uL (4.30-5.70); RED CELL DISTRIBUTION WIDTH 15.4 % (11.5-14.5)
[2018-02-18 05:50] LABS: PLATELET COUNT 8 x10^3/uL (140-400); WHITE BLOOD COUNT 1.2 x10^3/uL (4.0-11.0)
[2018-02-18] MEDS: IV DEXTROSE 5% - 0.9 % NACL 1,000 ML IV ×2 (06:23→21:31)
[2018-02-18] MEDS: BISACODYL 5 MG TABLET.DR. PO (08:54)
[2018-02-18] MEDS: LOSARTAN POTASSIUM 50 MG TABLET. PO (08:54)
[2018-02-18] MEDS: ALLOPURINOL 100 MG TABLET. PO (08:54)
[2018-02-18] MEDS: PANTOPRAZOLE 40 MG TABLET.DR. PO (08:55)
[2018-02-18] MEDS: FLUCONAZOLE 100 MG TABLET. PO (08:55)
[2018-02-18] MEDS: ACYCLOVIR 200 MG CAPSULE. PO ×2 (08:55→21:32)
[2018-02-18] MEDS: SENNOSIDES/DOCUSATE 8.6/50MG TABLET. PO ×2 (08:55→21:00)
[2018-02-18 10:20] LABS: TYPE AND SCREEN 1 1
[2018-02-18] MEDS: DEXAMETHASONE SOD PHOS 4 MG/ML VIAL IV ×2 (11:40→18:18)
[2018-02-18] MEDS: ATORVASTATIN CALCIUM 20 MG TABLET PO (21:32)
[2018-02-19] MEDS: DEXAMETHASONE SOD PHOS 4 MG/ML VIAL IV ×3 (00:19→12:00)
[2018-02-19] MEDS: IV DEXTROSE 5% - 0.9 % NACL 1,000 ML IV ×2 (06:21→16:45)
[2018-02-19 06:29] LABS: ADD MAN DIFF? NO
[2018-02-19 06:56] LABS: BASO % 0 % (0-3); EOS % 0 % (0-3); HEMATOCRIT 24.3 % (39.0-53.0); HEMOGLOBIN 8.7 g/dL (13.0-17.5); LYMPH # 0.2 x10^3/uL (1.0-4.8); LYMPH % 11 % (24-48); MEAN CORPUSCULAR HEMOGLOBIN 30 pg (25-35); MEAN CORPUSCULAR HGB CONC 36 g/dL (31-37); MEAN CORPUSCULAR VOLUME 84 fL (79-100); MONO % 0 % (0-9); NEUT # 1.8 x10^3uL (1.8-7.7); NEUT % 89 % (31-73); PLATELET COUNT 36 x10^3/uL (140-400); RED BLOOD COUNT 2.89 x10^6/uL (4.30-5.70); RED CELL DISTRIBUTION WIDTH 15.6 % (11.5-14.5); WHITE BLOOD COUNT 2.1 x10^3/uL (4.0-11.0)
[2018-02-19] MEDS: ACYCLOVIR 200 MG CAPSULE. PO ×2 (08:16→20:25)
[2018-02-19] MEDS: FLUCONAZOLE 100 MG TABLET. PO (08:16)
[2018-02-19] MEDS: ALLOPURINOL 100 MG TABLET. PO (08:16)
[2018-02-19] MEDS: PANTOPRAZOLE 40 MG TABLET.DR. PO (08:16)
[2018-02-19] MEDS: BISACODYL 5 MG TABLET.DR. PO (08:17)
[2018-02-19] MEDS: LOSARTAN POTASSIUM 50 MG TABLET. PO (08:17)
[2018-02-19] MEDS: SENNOSIDES/DOCUSATE 8.6/50MG TABLET. PO ×2 (08:17→20:26)
[2018-02-19] MEDS: DEXAMETHASONE 4 MG TABLET PO (18:06)
[2018-02-19] MEDS: TBO-FILGRASTIM 480 MCG/0.8 ML SYRINGE. SQ (20:25)
[2018-02-19] MEDS: ATORVASTATIN CALCIUM 20 MG TABLET PO (20:26)
[2018-02-20] MEDS: DEXAMETHASONE 4 MG TABLET PO ×4 (00:28→17:43)
[2018-02-20] MEDS: PANTOPRAZOLE 40 MG TABLET.DR. PO (08:00)
[2018-02-20] MEDS: ALLOPURINOL 100 MG TABLET. PO (08:01)
[2018-02-20] MEDS: ACYCLOVIR 200 MG CAPSULE. PO ×2 (08:01→21:51)
[2018-02-20] MEDS: SENNOSIDES/DOCUSATE 8.6/50MG TABLET. PO ×2 (08:01→21:00)
[2018-02-20] MEDS: LOSARTAN POTASSIUM 50 MG TABLET. PO (08:01)
[2018-02-20] MEDS: BISACODYL 5 MG TABLET.DR. PO (08:02)
[2018-02-20] MEDS: FLUCONAZOLE 100 MG TABLET. PO (08:02)
[2018-02-20 14:06] LABS: BASO % 0 % (0-3); EOS % 0 % (0-3); HEMATOCRIT 28.4 % (39.0-53.0); LYMPH # 0.3 x10^3/uL (1.0-4.8); LYMPH % 7 % (24-48); MEAN CORPUSCULAR HEMOGLOBIN 30 pg (25-35); MEAN CORPUSCULAR HGB CONC 35 g/dL (31-37); MEAN CORPUSCULAR VOLUME 85 fL (79-100); MONO % 0 % (0-9); NEUT % 93 % (31-73); PLATELET COUNT 38 x10^3/uL (140-400); RED BLOOD COUNT 3.35 x10^6/uL (4.30-5.70); RED CELL DISTRIBUTION WIDTH 15.4 % (11.5-14.5); WHITE BLOOD COUNT 4.3 x10^3/uL (4.0-11.0)
[2018-02-20 14:12] LABS: ANION GAP 9 (6-14); BLOOD UREA NITROGEN 44 mg/dL (8-26); BUN/CREATININE RATIO 22 (6-20); CALCIUM 9.1 mg/dL (8.5-10.1); CARBON DIOXIDE 26 mmol/L (21-32); CHLORIDE 101 mmol/L (98-107); GFR 32.8; GLUCOSE 212 mg/dL (70-99); POTASSIUM 3.6 mmol/L (3.5-5.1); SODIUM 136 mmol/L (136-145)
[2018-02-20 14:18] LABS: ADD MAN DIFF? YES
[2018-02-20 14:19] LABS: ALBUMIN 2.7 g/dL (3.4-5.0); ALBUMIN/GLOBULIN RATIO 0.6 (1.0-1.7); ALK PHOS 107 U/L (46-116); ALT (SGPT) 19 U/L (16-63); AST (SGOT) 22 U/L (15-37); TOTAL BILIRUBIN 0.4 mg/dL (0.2-1.0); TOTAL PROTEIN 6.9 g/dL (6.4-8.2)
[2018-02-20] MEDS: amLODIPine BESYLATE 5 MG TABLET PO (17:45)
[2018-02-20 19:02] LABS: % BANDS 38 % (0-9); % LYMPHS 12 % (24-48); % METAS 6 % (0-0); % MONOS 1 % (0-10); % MYELOS 1 % (0-0); % SEGS 42 % (35-66)
[2018-02-20 19:04] LABS: PLT ESTIMATE DECREASED (ADEQUATE)
[2018-02-20] MEDS: TBO-FILGRASTIM 480 MCG/0.8 ML SYRINGE. SQ (21:50)
[2018-02-20] MEDS: ATORVASTATIN CALCIUM 20 MG TABLET PO (21:51)
[2018-02-21] MEDS: DEXAMETHASONE 4 MG TABLET PO ×4 (00:38→18:18)
[2018-02-21 10:10] LABS: ADD MAN DIFF? NO
[2018-02-21 10:18] LABS: BASO % 0 % (0-3); EOS % 0 % (0-3); HEMATOCRIT 26.6 % (39.0-53.0); HEMOGLOBIN 9.4 g/dL (13.0-17.5); LYMPH # 0.4 x10^3/uL (1.0-4.8); LYMPH % 6 % (24-48); MEAN CORPUSCULAR HEMOGLOBIN 30 pg (25-35); MEAN CORPUSCULAR HGB CONC 35 g/dL (31-37); MEAN CORPUSCULAR VOLUME 85 fL (79-100); MONO % 1 % (0-9); NEUT # 5.8 x10^3uL (1.8-7.7); NEUT % 94 % (31-73); PLATELET COUNT 35 x10^3/uL (140-400); RED BLOOD COUNT 3.14 x10^6/uL (4.30-5.70); RED CELL DISTRIBUTION WIDTH 15.1 % (11.5-14.5); WHITE BLOOD COUNT 6.2 x10^3/uL (4.0-11.0)
[2018-02-21] MEDS: PANTOPRAZOLE 40 MG TABLET.DR. PO (10:33)
[2018-02-21] MEDS: ACYCLOVIR 200 MG CAPSULE. PO ×2 (10:33→20:31)
[2018-02-21] MEDS: FLUCONAZOLE 100 MG TABLET. PO (10:33)
[2018-02-21] MEDS: ALLOPURINOL 100 MG TABLET. PO (10:33)
[2018-02-21] MEDS: SENNOSIDES/DOCUSATE 8.6/50MG TABLET. PO ×2 (10:34→20:31)
[2018-02-21] MEDS: BISACODYL 5 MG TABLET.DR. PO (10:34)
[2018-02-21] MEDS: LOSARTAN POTASSIUM 50 MG TABLET. PO (10:34)
[2018-02-21] MEDS: amLODIPine BESYLATE 5 MG TABLET PO (10:34)
[2018-02-21] MEDS: ATORVASTATIN CALCIUM 20 MG TABLET PO (20:30)
[2018-02-22] MEDS: DEXAMETHASONE 4 MG TABLET PO ×3 (00:02→12:14)
[2018-02-22] MEDS: LOSARTAN POTASSIUM 50 MG TABLET. PO (08:32)
[2018-02-22] MEDS: PANTOPRAZOLE 40 MG TABLET.DR. PO (08:32)
[2018-02-22] MEDS: BISACODYL 5 MG TABLET.DR. PO (08:33)
[2018-02-22] MEDS: FLUCONAZOLE 100 MG TABLET. PO (08:33)
[2018-02-22] MEDS: SENNOSIDES/DOCUSATE 8.6/50MG TABLET. PO (08:34)
[2018-02-22] MEDS: amLODIPine BESYLATE 5 MG TABLET PO (08:34)
[2018-02-22] MEDS: ACYCLOVIR 200 MG CAPSULE. PO (08:35)
[2018-02-22] MEDS: ALLOPURINOL 100 MG TABLET. PO (08:35)
[2018-02-22 08:44] LABS: ADD MAN DIFF? NO
[2018-02-22 08:52] LABS: BASO % 0 % (0-3); EOS % 0 % (0-3); HEMATOCRIT 24.4 % (39.0-53.0); HEMOGLOBIN 8.4 g/dL (13.0-17.5); LYMPH # 0.2 x10^3/uL (1.0-4.8); LYMPH % 6 % (24-48); MEAN CORPUSCULAR HEMOGLOBIN 29 pg (25-35); MEAN CORPUSCULAR HGB CONC 34 g/dL (31-37); MEAN CORPUSCULAR VOLUME 85 fL (79-100); MONO % 0 % (0-9); NEUT # 3.3 x10^3uL (1.8-7.7); NEUT % 93 % (31-73); PLATELET COUNT 26 x10^3/uL (140-400); RED BLOOD COUNT 2.88 x10^6/uL (4.30-5.70); RED CELL DISTRIBUTION WIDTH 15.3 % (11.5-14.5); WHITE BLOOD COUNT 3.6 x10^3/uL (4.0-11.0)
[2018-02-22 09:35] LABS: ANION GAP 6 (6-14); BLOOD UREA NITROGEN 56 mg/dL (8-26); CALCIUM 8.5 mg/dL (8.5-10.1); CARBON DIOXIDE 28 mmol/L (21-32); CHLORIDE 102 mmol/L (98-107); CREATININE 1.9 mg/dL (0.7-1.3); GFR 34.8; GLUCOSE 137 mg/dL (70-99); POTASSIUM 4.4 mmol/L (3.5-5.1); SODIUM 136 mmol/L (136-145)
== END 2018-02-22 13:45 | disposition hospice, home (50) | DRG 542 ==
LOC: 5 SOUTH 16:52 → ER 12:30 → 5 SOUTH 15:41
PROC: 30233N1 Transfusion of Nonautologous Red Blood Cells into Peripheral Vein, Percutaneous Approach (ICD-10-PCS; principal; 2018-02-14)
PROC: 30233R1 Transfusion of Nonautologous Platelets into Peripheral Vein, Percutaneous Approach (ICD-10-PCS; 2018-02-14)
DX: M48.56XA Collapsed vertebra, not elsewhere classified, lumbar region, initial encounter for fracture (principal); D61.811 Other drug-induced pancytopenia; N17.9 Acute kidney failure, unspecified; C34.90 Malignant neoplasm of unspecified part of unspecified bronchus or lung; C78.00 Secondary malignant neoplasm of unspecified lung; C78.7 Secondary malignant neoplasm of liver and intrahepatic bile duct; C79.31 Secondary malignant neoplasm of brain; C92.00 Acute myeloblastic leukemia, not having achieved remission; G81.91 Hemiplegia, unspecified affecting right dominant side; C93.10 Chronic myelomonocytic leukemia not having achieved remission; E78.00 Pure hypercholesterolemia, unspecified; E78.5 Hyperlipidemia, unspecified; G93.89 Other specified disorders of brain; I12.9 Hypertensive chronic kidney disease with stage 1 through stage 4 chronic kidney disease, or unspecified chronic kidney disease; I73.9 Peripheral vascular disease, unspecified; J43.9 Emphysema, unspecified; K21.9 Gastro-esophageal reflux disease without esophagitis; K44.9 Diaphragmatic hernia without obstruction or gangrene; K57.90 Diverticulosis of intestine, part unspecified, without perforation or abscess without bleeding; M19.90 Unspecified osteoarthritis, unspecified site; N18.9 Chronic kidney disease, unspecified; N21.0 Calculus in bladder; W06.XXXA Fall from bed, initial encounter; M10.9 Gout, unspecified; Z66 Do not resuscitate; W18.2XXA Fall in (into) shower or empty bathtub, initial encounter; Y93.E1 Activity, personal bathing and showering; Z80.1 Family history of malignant neoplasm of trachea, bronchus and lung; Z83.3 Family history of diabetes mellitus; Z85.118 Personal history of other malignant neoplasm of bronchus and lung; Z85.828 Personal history of other malignant neoplasm of skin; Z86.73 Personal history of transient ischemic attack (TIA), and cerebral infarction without residual deficits; Z87.442 Personal history of urinary calculi; Z87.891 Personal history of nicotine dependence; Z92.21 Personal history of antineoplastic chemotherapy; Y92.89 Other specified places as the place of occurrence of the external cause
CPT/HCPCS: 36415; 70450; 70551; 71045; 71046; 71250; 72100; 72125; 72148; 74176; 80048; 80053; 81001; 82553; 83735; 83880; 84443; 84484; 85007; 85025; 86850; 86900; 86901; 86920; 93005; 96360; 96361; 97110-GP; 97116-GP; 97162-GP; 97166-GO; 97530-GO; 97530-GP; 97535-GO; 99285; 99285-25; J1100; J1442; J2270; J7030; J7042; J8540; P9016; P9035